=== PATIENT | male | born 1945 | race Caucasian/White ===

== ENCOUNTER → 2017-09-07 | Outpatient (CLI) | payer OTHER, BC ==
[~2017-09-07] MED LIST: ALLEGRA ALLERG180 MG PO; ASA5UEC PO; EXFORGE 5-1601 EACH PO; FISH OIL 1,2001 EAC4 PO; HYDROCHLOROTHIA25 M2 PO; PRILOSEC OTC20 MG PO; SORINE 80 MG TA80 M1 PO
[2017-09-07 09:03] LABS: HEMATOCRIT 48.7 % (42.0-52.0); HEMOGLOBIN 16.6 gm/dL (14.0-18.0); MCH 31.1 pg (26.0-34.0); MCV 91.3 fL (80.0-100.0); RBC 5.34 mil/uL (4.50-6.00); RDW 13.2 % (10.5-14.5); WBC 7.2 thou/uL (4.0-11.0)
[2017-09-07 09:15] LABS: CALCIUM 9.2 mg/dL (8.5-10.1); CREATININE 0.8 mg/dL (0.7-1.3); POTASSIUM 4.1 mmol/L (3.5-5.1)
[2017-09-07 09:20] LABS: ALBUMIN 3.8 g/dL (3.4-5.0); TOTAL BILIRUBIN 1.2 mg/dL (<0.1-1.0); TOTAL PROTEIN 6.7 g/dL (6.4-8.2)
== END ==
LOC: CAT 06:29
PROVIDERS: Internal Medicine Cardiovascular Disease
DX: I48.91 Unspecified atrial fibrillation (principal)

== ENCOUNTER 2017-09-13 06:37 | Observation (INO) | payer OTHER, BC ==
[~2017-09-13] VITALS: Ht 193 cm; Wt 120.9 kg
[2017-09-13] VITALS (12 sets, daily range): BP systolic 123–162; BP diastolic 69–90
--- NOTE | ~2017-09-13 | H ---
[facility] [place] [address] HISTORY AND PHYSICAL Name: REYNALDO DE LA FUENTE [facility] [id number] Admission: 09/13/17 Attend Phys: Ephraim Richardson MD Discharge: 09/14/17 Date of : 49 Report #: [id number] THIS REPORT FOR: //name// CC: Jamal Richardson HISTORY OF PRESENT ILLNESS: The patient is a 71-year-old male with history of AFib, who has failed antiarrhythmic drugs and is here for an ablation. REVIEW OF SYSTEMS: Twelve-point review of systems was performed and is negative other than what I mentioned above. PAST MEDICAL HISTORY: Includes: 1. AFib. 2. Diabetes. 3. Prior transient ischemic attack. SOCIAL HISTORY: He does not smoke. FAMILY HISTORY: Noncontributory. ALLERGIES: Include ATORVASTATIN, HYDRALAZINE, METOLAZONE, and SIMVASTATIN. MEDICATIONS: Have been reviewed. PHYSICAL EXAMINATION: VITAL SIGNS: Stable. GENERAL: No acute distress. HEENT: Sclerae anicteric. HEART: Regular rate and rhythm. LUNGS: Clear to auscultation bilaterally. ABDOMEN: Soft, nontender, nondistended. EXTREMITIES: No clubbing, cyanosis, edema. NEUROLOGIC: Cranial nerves 2-12 intact. LABORATORY DATA: Labs were reviewed prior to the procedure. ASSESSMENT: Atrial fibrillation. PLAN: The patient will undergo AFib ablation. Risks, benefits have been previously documented. <ELECTRONICALLY SIGNED> By: Ephraim Richardson MD 10/15/17 1622 [id number] Ephraim Richardson MD /nt
--- NOTE | ~2017-09-13 | P ---
[facility] [place] [address] PROCEDURE REPORT Name: LEISAREYNALDO Estrada Room #: 219-P [facility] Patricio MLuis M#: [id number] Admission: 09/13/17 Attend Phys: Ephraim Richardson MD Discharge: 09/14/17 Date of : 49 Report #: [id number] THIS REPORT FOR: //name// CC: Jamal Richardson PREOPERATIVE DIAGNOSIS: Atrial fibrillation. POSTOPERATIVE DIAGNOSIS: Atrial fibrillation. HISTORY OF PRESENT ILLNESS: The patient is a 71-year-old with history of atrial fibrillation, here for an ablation. ANESTHESIA: The patient underwent general anesthesia with no anesthesia-related complications. DESCRIPTION OF PROCEDURE: The patient underwent informed consent. We discussed the details of the procedure including the risk, which include but not limited to bleeding, vascular damage, cardiac perforation as well as stroke or [place]. He understood these risks and is willing to proceed. The patient was brought to the EP laboratory in fasting and sedated state, prepped and draped in a sterile fashion. I injected lidocaine at the right groin region, obtained access of the right femoral vein times 3, placing an 8-[place] Citizen, 9-[place] Citizen and 7-[place] Citizen short sheath using the modified Seldinger technique. At baseline, the patient was in sinus rhythm with sinus cycle length of 1100 milliseconds, UT interval 205 milliseconds, QRS duration 109 milliseconds, QT interval 520 milliseconds. Under fluoroscopy, a decapolar catheter was placed into the coronary sinus and an ice catheter was placed into the right atrium. A detailed 3D geometry was created using CartoSound. Next, using an SL1 sheath and [place] needle, a transseptal was performed after the patient was systemically heparinized. Once in the left atrium with the SL1, I placed a Lasso and obtained baseline measurements from the pulmonary veins and the CT scan was then merged with the CartoSound images. Next, the SL1 sheath was exchanged for the cryo sheath, the cryoballoon was placed into the left atrium. The left superior vein underwent 2 freezes each of 4 minutes' duration. During the second freeze the vein isolated within 50 seconds. The left inferior pulmonary vein isolated quickly during the first freeze and required a single 4-minute freeze. The right superior pulmonary vein underwent two 4-minute freezes. During the first freeze, the vein isolated within 80 seconds. The right inferior pulmonary vein was then isolated with a single 4-minute freeze. Time to isolation was 54 seconds for this vein. While isolating the right-sided veins, phrenic nerve pacing was performed. All veins were reinterrogated and found to be isolated. As such, the procedure was concluded. Sheaths were pulled to the right atrium. Intracardiac ultrasound was utilized to verify the absence of a pericardial effusion. The patient then received [address] [address] PROCEDURE REPORT Name: REYNALDO DE LA FUENTE Room #: 219-P [facility] Gan#: [id number] Admission: 09/13/17 Attend Phys: Ephraim Richardson MD Discharge: 09/14/17 Date of : 49 Report #: [id number] systemic protamine and once ACT was within acceptable range, all catheters and sheaths were pulled. Hemostasis was obtained and the patient awoke neurologically and hemodynamically intact with no complications and no significant bleeding. CONCLUSION: Successful AFib ablation with isolation of the 4 pulmonary veins. <ELECTRONICALLY SIGNED> By: Ephraim Richardson MD 10/07/17 1426 [id number] Ephraim Richardson MD /nt
--- NOTE | ~2017-09-13 | D ---
[facility] [place] [address] DISCHARGE SUMMARY Name: REYNALDO DE LA FUENTE Room #: 219-P [facility] Malik#: [id number] Admission: 09/13/17 Attend Phys: Ephraim Richardson MD Discharge: 09/14/17 Date of : 49 Report #: [id number] THIS REPORT FOR: //name// CC: Jamal Richardson DIAGNOSIS: Atrial fibrillation. PROCEDURE PERFORMED: AFib ablation. HISTORY: The patient is a 71-year-old with a history of paroxysmal AFib, who has failed sotalol therapy and is here for an ablation. Ablation was successful with isolation of the 4 pulmonary veins. There were no intra-procedural complications. HOSPITAL COURSE: He was monitored overnight in the CCU. Following day, he denied any problems with shortness of breath. He had some mild inspiratory chest discomfort, which is expected with the procedure. He had no shortness of breath. PHYSICAL EXAMINATION: HEART: Regular rate and rhythm. LUNGS: Clear to auscultation bilaterally. ABDOMEN: Soft, nontender. EXTREMITIES: There is no clubbing, cyanosis, edema. Telemetry revealed that he was in sinus rhythm with no breakthrough atrial fibrillation. As such, the patient was deemed stable for discharge home. He will continue on his same home medications including sotalol 80 b.i.d. and Eliquis. I will see him back in 3 months. <ELECTRONICALLY SIGNED> By: Ephraim Richardson MD 09/21/17 1516 [id number] [id number] Ephraim Richardson MD /nt
[2017-09-13 07:13] LABS: ABSOLUTE NEUTROPHILS 3.9 thou/uL (1.4-8.2); BASOPHILS 0.6 % (0.0-2.0); EOSINOPHILS 5.7 % (0.0-3.0); HEMATOCRIT 49.4 % (42.0-52.0); HEMOGLOBIN 16.8 gm/dL (14.0-18.0); MCH 30.9 pg (26.0-34.0); MCHC 33.9 g/dL (28.0-37.0); MCV 91.1 fL (80.0-100.0); MONOCYTES 10.3 % (1.0-8.0); PLATELET COUNT 212 thou/uL (150-400); POLYS 61.4 % (36.0-66.0); RBC 5.43 mil/uL (4.50-6.00); WBC 6.4 thou/uL (4.0-11.0)
[2017-09-13 07:21] LABS: CALCIUM 9.4 mg/dL (8.5-10.1); CREATININE 0.7 mg/dL (0.7-1.3); POTASSIUM 3.7 mmol/L (3.5-5.1)
[2017-09-13 07:26] LABS: ALBUMIN 4.1 g/dL (3.4-5.0); TOTAL BILIRUBIN 1.5 mg/dL (<0.1-1.0); TOTAL PROTEIN 7.3 g/dL (6.4-8.2)
[2017-09-13 07:30] LABS: APTT 24.5 Seconds (24.5-32.8); PROTIME 10.1 Seconds (9.3-11.4)
[2017-09-13] MEDS ORDERED: ELIQUIS5 MG PO (07:43)
[2017-09-14 03:29] VITALS: BP 134/64
[2017-09-14 07:53] VITALS: BP 134/74
[2017-09-14 08:31] VITALS: BP 134/74
[2017-09-14 08:38] VITALS: BP 134/74
[2017-09-14 08:39] VITALS: BP 134/74
[2017-09-14 09:09] VITALS: BP 134/74
== END 2017-09-14 09:50 | disposition home or self-care (01) ==
LOC: CATH 06:37 → 2N 07:02 → CATH 17:35 → ENTRNSPT 09-14 09:44 → EDTRNSPTSTS 09-14 09:47 → 2N 09-14 09:50
PROVIDERS: Internal Medicine Cardiovascular Disease
DX: I48.91 Unspecified atrial fibrillation (principal); E11.9 Type 2 diabetes mellitus without complications; Z86.73 Personal history of transient ischemic attack (TIA), and cerebral infarction without residual deficits
CPT/HCPCS: 62110; 62900; 65020; 65040; 70005

== ENCOUNTER → 2019-08-14 | Outpatient (CLI) | payer OTHER, BC ==
[~2019-08-14] MED LIST changes: +ELIQUIS5 MG PO
== END ==
LOC: SJCVC 11:16
DX: R94.31 Abnormal electrocardiogram [ECG] [EKG] (principal); I10 Essential (primary) hypertension; E11.9 Type 2 diabetes mellitus without complications; I48.0 Paroxysmal atrial fibrillation; E78.5 Hyperlipidemia, unspecified; C61 Malignant neoplasm of prostate

== ENCOUNTER → 2020-05-01 | Outpatient (CLI) | payer OTHER, BC | LOC: SJCVC 14:07 | PROVIDERS: ATTEND Internal Medicine Cardiovascular Disease | DX: I48.0 Paroxysmal atrial fibrillation (principal); I10 Essential (primary) hypertension; E78.5 Hyperlipidemia, unspecified; I65.23 Occlusion and stenosis of bilateral carotid arteries; E11.9 Type 2 diabetes mellitus without complications; E78.2 Mixed hyperlipidemia; Z79.82 Long term (current) use of aspirin; Z79.899 Other long term (current) drug therapy; Z87.891 Personal history of nicotine dependence; Z86.16 Personal history of COVID-19 ==